=== PATIENT | male | born 1970 | race Caucasian/White ===

== ENCOUNTER 2020-12-15 14:09 | Emergency (ER) | payer BC, SELFPAY ==
[2020-12-15 15:05] VITALS: BP 125/77; PULSE 87; RESP 19; TEMP 37.2; O2SAT 99; BMI 30.1
--- NOTE | 2020-12-15 16:16 | HMH.EDUTC ---
[facility] [place] Clinical Impression: Bronchitis Sinusitis Qualifiers: Sinusitis location: unspecified location Chronicity: unspecified Qualified Code(s): J32.9 - Chronic sinusitis, unspecified Disposition: Home, Self-Care Condition on Discharge: Good Instructions: Sinusitis, Acute Bronchitis, DI for Sinusitis Additional Instructions: ? Start antibiotic today. Be sure to complete entire prescription even if feeling better ? Monitor temp. Tylenol every 4 hours as needed and / or ibuprofen every 6 hours as needed ( As long as your primary care physician has told you that it ok to take both. For fever/aches/pains ER if no less than 101 despite Tylenol or Motrin ? Humidifier/vaporizer or hot steamy shower ? Inhaler every 4-6 hours as needed like we discussed. If unsure how to use it, ask pharmacist to demonstrate how. Should help open airways and improve cough, wheezing, and shortness of breath ? Mucinex during the day for your cough and cough suppressant only at night. Be sure to drink lots of water. Insurance may not cover a prescriptions for mucinex. Might be cheaper to get 400mg tablets and take 2 tablet in the morning, mid-day and evening with lots of water. Start steroid today. Helps with inflammation therefore, cough and wheezing. Follow directions on the package. Reviewed side effects. Patient reports taking them before. Follow up IMMEDIATELY for new or worsening of symptoms OR no noticeable improvement over the next 48-72 hours. 911 immediately for any life threatening symptoms such as chest pain or difficulty breathing Prescriptions: predniSONE [Deltasone 10mg tablet] 10 mg PO BID 5 Days #10 tab Transmission Status: Pending to [facility] # Azithromycin [Z-John 250mg Tab] 250 mg PO DIRECTED #6 tab Transmission Status: Pending to [facility] # Referrals: Lauren North MD [Primary Care Provider] - As needed Time of Disposition: 16:23 Medical Decision Making - Owen Inquiry Pt receiving controlled substance: No Owen was queried for this patient: No Vital Signs: 12/15/20 15:05 Temperature 99.0 F Temperature Source Oral Pulse Rate [Right Brachial] 87 Respiratory Rate 19 Blood Pressure [Right Arm] 125/77 Blood Pressure Mean [Right Arm] 93 Blood Pressure Source [Right Arm] Automatic Cuff Blood Pressure Position [Right Arm] Sitting 02 Sat by Pulse Oximetry 99 Oxygen Delivery Method Room Air [facility] [place] HPI - General Stated complaint: congestion Time Seen by Provider: 12/15/20 16:16 Mode of Arrival: Ambulatory Source of Information: Patient Limitations: No Limitations Description of Symptoms (Recalled from Triage Doc. by RN): PATIENT C/O POSSIBLE UPPER RESPIRATORY INFECTION X 3 DAYS HEENT Symptoms (Recalled from RN notes): Yes Resp Symptoms (Recalled from RN notes): Yes Skin Symptoms (Recalled from RN notes): No MS Symptoms (Recalled from RN notes): No Functional Status (Recalled from RN notes): WNL - History of Present Illness Provider Complaint: Patient states that he has been having sore throat, sinus pressure and headache along with feeling like it is trying to move into his chest States that he has a history of getting bronchitis States that he started feeling bad over a week ago but got worse over the last couple of days State that he started taking Mucinex and it has helped some with the cough and has inhaler at home - Related Data Home Medications Medication Instructions Recorded Confirmed fluticasone propionate 50 1 spray INTRANASAL DAILY g 11/04/17 05/16/20 mcg/actuation nasal spray,suspension Fluticasone Propionate [Flonase 1 spray INTRANASAL DAILY 10/06/19 05/16/20 Allergy Relief NS] Previous Rx's Medication Instructions Recorded Azithromycin [Z-John 250mg Tab] 250 mg PO DIRECTED #6 tab 12/15/20 predniSONE [Deltasone 10mg tablet] 10 mg PO BID 5 Days #10 tab 12/15/20 Allergies Allergy/AdvReac Type Severity Reaction Status Da
[2020-12-15 16:23] VITALS: BP 125/77; PULSE 87; RESP 19; TEMP 37.2; O2SAT 99
== END 2020-12-15 16:28 | disposition home or self-care (01) ==
PROVIDERS: Emergency Provider Nurse Practitioner; PCP Family Medicine
DX: J20.9 Acute bronchitis, unspecified (principal); J32.9 Chronic sinusitis, unspecified; J45.909 Unspecified asthma, uncomplicated
CPT/HCPCS: 99202; G0463

== ENCOUNTER → 2022-03-02 13:24 | Outpatient (CLI) | payer BC, SELFPAY ==
--- NOTE | 2022-03-02 13:30 | XR_ITS ---
FINAL REPORT CLINICAL HISTORY: COVID TESTING, cough COMPARISON: October 06, 2019 FINDINGS: A single portable view of the chest was obtained. The heart size and pulmonary vascularity are within normal limits. The mediastinum is within normal limits. There are mild bibasilar pulmonary opacities favoring atelectasis over pneumonia. The bony thorax is intact. IMPRESSION: Mild bibasilar pulmonary opacities favoring atelectasis over pneumonia. Reviewed, Interpreted and Dictated by Sha Gusman III, MD Transcribed by Tamera Lucas Authenticated and [facility]
[2022-03-02 14:04] LABS: Basophils % 0.8 % (0.1-2.0); Eosinophils % 1.3 % (0.1-12.0); Hemoglobin 15.3 g/dL (14.1-18.0); Lymphocytes # 0.7 K/mm3 (0.7-4.5); Lymphocytes % 22.4 % (10-50); Mean Corpuscular HGB Conc 32.6 g/dL (31.8-35.4); Mean Corpuscular Hemoglobin 29.1 pg (27.0-31.2); Mean Corpuscular Volume 89.3 fl (80-94); Mean Platelet Volume 7.9 fl (7.4-10.4); Monocytes # 0.4 K/mm3 (0.1-1.0); Monocytes % 13.7 % (1.7-9.3); Neutrophils # 1.9 K/mm3 (1.8-7.8); Neutrophils % 61.7 % (37.0-80.0); Platelet Count 153 K/mm3 (142-424); Red Blood Count 5.26 M/mm3 (4.60-6.20); Red Cell Distribution Width 13.4 % (11.5-17.5); White Blood Count 3.1 K/mm3 (4.8-10.8)
== END ==
PROVIDERS: PCP Family Medicine; Visit Provider Family Medicine
DX: U07.1 COVID-19 (principal)
CPT/HCPCS: 36415; 71045; 85025; C9803; U0003; U0005

== ENCOUNTER → 2022-04-08 11:27 | Outpatient (CLI) | payer BC, SELFPAY ==
[2022-04-08 12:34] LABS: Basophils # 0.1 K/mm3 (0-0.2); Basophils % 1.3 % (0.1-2.0); Eosinophils # 0.1 K/mm3 (0.0-0.4); Eosinophils % 1.5 % (0.1-12.0); Hematocrit 47.1 % (42.0-52.0); Hemoglobin 15.3 g/dL (14.1-18.0); Lymphocytes # 1.2 K/mm3 (0.7-4.5); Lymphocytes % 19.8 % (10-50); Mean Corpuscular HGB Conc 32.5 g/dL (31.8-35.4); Mean Corpuscular Volume 89.3 fl (80-94); Mean Platelet Volume 7.6 fl (7.4-10.4); Monocytes # 0.5 K/mm3 (0.1-1.0); Neutrophils # 4.3 K/mm3 (1.8-7.8); Neutrophils % 69.3 % (37.0-80.0); Platelet Count 177 K/mm3 (142-424); Red Blood Count 5.28 M/mm3 (4.60-6.20); Red Cell Distribution Width 13.9 % (11.5-17.5); White Blood Count 6.3 K/mm3 (4.8-10.8)
[2022-04-08 13:19] LABS: Alanine Aminotransferase 18 U/L (12-78); Albumin Level 3.3 g/dl (3.5-5.0); Albumin/Globulin Ratio 1.5 (1.1-1.8); Alkaline Phosphatase 75 U/L (38-126); Anion Gap 10.3 mEq/L (5-15); Aspartate Amino Transferase 23 U/L (17-59); Bilirubin,Total 0.5 mg/dl (0.2-1.3); Blood Urea Nitrogen 15 mg/dl (9-20); Calcium 7.5 mg/dl (8.4-10.2); Carbon Dioxide 27 mmol/L (22.0-30.0); Chloride 101 mmol/L (98-107); Estimated Glomerular Filt Rate 101 ml/min (>60); GFR (African American) 122 ML/MIN (>60); Globulin 2.2 g/dL (1.3-3.2); Glucose 93 mg/dl (74-100); Potassium 4.3 mmoL/L (3.5-5.1); Sodium 134 mmol/L (136-145); Total Protein,Serum 5.5 g/dl (6.3-8.2)
[2022-04-08 13:48] LABS: Thyroid Stimulating Hormone 0.55 uIU/mL (0.465-4.68)
== END ==
PROVIDERS: PCP Physician Assistant; Visit Provider Physician Assistant
DX: J06.9 Acute upper respiratory infection, unspecified (principal); R53.83 Other fatigue
CPT/HCPCS: 36415; 80053; 84443; 85025

== ENCOUNTER → 2022-04-10 06:04 | Outpatient (CLI) | payer BC, SELFPAY ==
--- NOTE | 2022-04-10 06:27 | XR_ITS ---
FINAL REPORT TECHNIQUE: Chest PA & Lateral CLINICAL HISTORY: HISTORY OF COVID, WHEEZING COMPARISON: 03/02/2022 FINDINGS: 2 views of the chest were performed. The heart size is normal. The mediastinum is within normal limits. There is mild bronchial wall thickening. There are no pleural effusions. There is no pneumothorax. The bony thorax appears intact. IMPRESSION: Mild bronchial wall thickening may represent bronchitis. Reviewed, Interpreted and Dictated by Sha Gusman III, MD Transcribed by Tae Jiang Authenticated and [facility]
--- NOTE | 2022-04-10 06:28 | CT_ITS ---
FINAL REPORT TECHNIQUE: Axial CT images were obtained through the sinuses/facial bones. Coronal reformats were obtained. This study was performed with techniques to keep radiation doses as low as reasonably achievable (ALARA). Individualized dose reduction techniques using automated exposure control or adjustment of mA and/or kV according to the patient's size were employed. CLINICAL HISTORY: CHRONIC SINUSITIS FINDINGS: There is moderate to severe mucosal thickening in the maxillary sinuses. There is mucosal thickening in the ethmoid air cells and sphenoid sinuses. There are no air-fluid levels. There is leftward nasal septal deviation with a small left-sided nasal septal spur. There is a left wen bullosa. Soft tissue obstructs the maxillary ostia and infundibula. IMPRESSION: Widespread sinusitis with obstruction of the maxillary ostia and infundibula. Reviewed, Interpreted and Dictated by Sha Gusman III, MD Transcribed by Tae Jiang Authenticated and . [facility]
== END ==
PROVIDERS: PCP Physician Assistant; Visit Provider Physician Assistant
DX: R06.2 Wheezing (principal); R06.02 Shortness of breath; R50.9 Fever, unspecified; R05.9 Cough, unspecified; J32.9 Chronic sinusitis, unspecified; Z86.16 Personal history of COVID-19
CPT/HCPCS: 70486; 71046

== ENCOUNTER → 2022-07-16 16:09 | Outpatient (CLI) | payer BC, SELFPAY ==
[2022-07-16 16:29] LABS: Coronavirus 19, PCR Not Detected (NotDetected); Influenza A, PCR Not Detected (NotDetected); Influenza B, PCR Not Detected (NotDetected)
== END ==
PROVIDERS: PCP Family Medicine; Visit Provider Physician Assistant
DX: Z20.822 Contact with and (suspected) exposure to COVID-19 (principal)
CPT/HCPCS: C9803; U0003; U0005

== ENCOUNTER 2023-11-20 18:41 | Emergency (ER) | payer BC, SELFPAY ==
[2023-11-20 18:50] VITALS: BP 127/86; PULSE 64; RESP 18; TEMP 36.8; O2SAT 96; BMI 30.1
--- NOTE | 2023-11-20 19:02 | ED_ITS ---
Discharge Plan Disposition Patient Disposition: Home, Self-Care Prescriptions Prescriptions: New cyclobenzaprine 10 mg Tablet 10 mg PO BID PRN (Reason: Muscle Spasm) Qty: 20 0RF prednisone 20 mg tablet 20 mg PO BID 5 Days Qty: 10 0RF No Action fluticasone propionate 9.9 ML spray,suspension 1 spray intranasal DAILY Rx Instructions: administer into each nostril Referrals Follow up/Referrals: Lauren North MD [Primary Care Provider] - See instructions Activity Restrictions/Add. Instructions Additional Instructions/Restrictions: Go home and rest. It would be best if you rested tomorrow too. No heavy lifting. No twisting. Take the oral medications as directed. The muscle relaxer (cyclobenzaprine--Flexeril) will make you drowsy, so don't drive or operate heavy machinery after taking it. Don't start the oral steroids (medrol dose pack) until tomorrow, since you had the shots in here today. Follow up with your regular doctor. GO TO THE ER FOR ANY WORSENING SYMPTOMS OR CONCERN, ESPECIALLY BOWEL OR BLADDER ISSUES, SADDLE AREA NUMBNESS, FEVER, ETC Clinical Impressions Clinical Impression: Low back pain with sciatica Discharge ED Provider: Cesar Potts [facility] General Stated complaint: lower back pain Time Seen by Provider: 11/20/23 19:02 History of Present Illness Provider Complaint: He states that for the past 3 weeks he has had low back pain. He came in today because his pain has worsened and it has began to radiate down his right leg today. He took a medrol dose pack that he finished about 1 week ago. He states that this did help some at first, but his symptoms returned after he finished. He has had episodes of low back pain before, but they have never lasted this long. He denies any falls or trauma. He denies any urinary complaints. Related Data Home Medications Medication Instructions Recorded Confirmed fluticasone propionate 50 1 spray intranasal DAILY allergies 10/06/19 11/20/23 mcg/actuation nasal spray,suspension Previous Rx's Medication Instructions Recorded cyclobenzaprine 10 mg tablet 10 mg PO BID PRN Muscle Spasm #20 11/20/23 tabs prednisone 20 mg tablet 20 mg PO BID 5 days #10 tabs 11/20/23 Allergies Allergy/AdvReac Type Severity Reaction Status Date / Time ILOSOME Allergy Unknown I-RASH Uncoded 11/20/23 19:12 [facility] Disclaimer: The information contained in this section may have been updated after the patient was seen, as this information can be updated by other users. Medical History Chronic sinusitis Deviated septum History of asthma History of stomach ulcers Sinus congestion Tympanosclerosis Surgical History History of placement of ear tubes Hx of bilateral inguinal hernia repair Social History Smoking Status: Current every day smoker tobacco type: smokeless tobacco alcohol intake: never substance use type: denies use current occupational status: other Travel in the last 8 weeks: None household members: family housing: house ROS Obtained: Yes All systems reviewed & no additional complaints except as documented Constitutional Constitutional: Denies chills and Denies fever(s) Eyes Eyes: Denies eye discharge ENT Ears, Nose, Mouth, and Throat: Denies dizziness, Denies otalgia, Denies neck pain and Denies sore throat Cardiovascular Cardiovascular: Denies chest pain Respiratory Respiratory: Denies shortness of breath, Denies chest congestion, Denies cough, Denies stridor and Denies wheezing Gastrointestinal Gastrointestingal: Denies nausea or vomiting Musculoskeletal Musculoskeletal: Reports as per HPI, Reports back pain and Denies neck pain Integumentary/Breasts Skin/Breast: Denies redness, Denies rash and Denies wounds Neurologic Neurologic: Reports as per HPI, Denies dizziness, Denies paresthesias and Reports radicular pain Allergic/Immunologic Allergic/Immunologic: Denies wheezing Physical Exam General General appearance: alert and in no apparent distress Head Head exam: atraumatic, normocephalic and normal inspection Eye Eye exam: Present normal appearance, PERRL and EOMI ENT ENT exam: Present normal exam, normal oropharynx, mucous membranes moist, TM's normal bilaterally and normal external ear exam Neck Neck exam: Present normal inspection, full ROM and trachea midline; Absent meningismus or lymphadenopathy Chest Chest inspection: Present normal inspection and symmetric chest wall rise; Absent tenderness Respiratory Respiratory exam: Present normal lung sounds bilaterally; Absent respiratory distress Cardiovascular Cardiovascular exam: Present regular rate and normal rhythm; Absent JVD Abdominal Exam Abdominal exam: Present soft and normal bowel sounds; Absent distention, tenderness or guarding Extremities Exam Extremities exam: Present normal inspection, full ROM and normal capillary refill; Absent calf tenderness Back Exam Back exam: Present normal inspection; Absent tenderness Neurological Exam Neurological exam: Present alert, oriented X3, CN II-XII intact, normal gait and reflexes normal; Absent motor sensory deficit Expanded Neurological Exam Speech: Present fluid speech Cranial nerves: Normal: EOM function (II, III, IV, ), facial sensation (V), facial palsy (VII), gag reflex (IX), spinal accessory function (XI) and tongue deviation (XII) Cerebellar function: normal gait Motor strength - LUE: 5/5 Motor strength - RUE: 5/5 Motor strength - LLE: 5/5 Motor strength - RLE: 5/5 Sensory exam upper extremity: Normal: light touch and 2 point discrimination Sensory exam lower extremity: Normal: light touch and 2 point discrimination DTR: 2+: biceps (L), biceps (R), patellar (L), patellar (R), Achilles tendon (L) and Achilles tendon (R) Spinal cord function: Absent saddle anesthesia Psychiatric Psychiatric exam: Present normal affect and normal mood Skin Skin exam: Present warm, dry, intact and normal color Lymphatic Lymphatic Findings: no adenopathy Medical Decision Making Medical Records Medical records reviewed: No I reviewed the patient's medical records. Owen Inquiry Pt receiving controlled substance: No Radiology Data #1: Image(s): L-Spine Image Reviewed: Yes I reviewed the patient's radiology image and Yes I have reviewed radiologist's interpretation Preliminary Findings: No Fracture Seen
--- NOTE | 2023-11-20 19:38 | XR_ITS ---
PROCEDURE INFORMATION: Exam: XR Lumbosacral Spine Exam date and time: 11/20/2023 7:41 PM Age: 53 years old Clinical indication: Pain; Lumbago with sciatica; Additional info: Low back pain, no known injury TECHNIQUE: Imaging protocol: Radiologic exam of the lumbosacral spine. Views: 4 or 5 views. Total images: 5 COMPARISON: No relevant prior studies available. FINDINGS: Bones/joints: Five non rib-bearing lumbar vertebral segments. Vertebral body height and alignment is maintained. Moderate degenerative disc disease L2-L3. Mild degenerative disc disease L4-L5 and L5-S1. Pedicles and posterior elements are intact. Facet joints are appropriately aligned. Mild degenerate facet joint spondylosis bilaterally L2-L3, L4-L5 and L5-S1. No spondylolysis. No concerning bone lesions. Included sacrum and SI joint spaces are unremarkable. Soft tissues: Unremarkable soft tissues. Gastrointestinal tract: Nonobstructive bowel gas pattern. Vasculature: Incidental pelvic phleboliths. IMPRESSION: 1. No acute lumbar fracture or traumatic subluxation. 2. Moderate degenerative disc disease L2-L3. 3. Mild degenerative disc disease and facet joint spondylosis elsewhere.
[2023-11-20] MEDS: METHYLPREDNISOLONE SOD SUCC 125MG VIAL 125 MG IM (20:13)
[2023-11-20] MEDS: KETOROLAC 60MG/2ML VIAL 60 MG IM (20:13)
[2023-11-20 20:38] VITALS: BP 127/86; PULSE 64; RESP 18; TEMP 36.8; O2SAT 96
== END 2023-11-20 20:38 | disposition home or self-care (01) ==
PROVIDERS: Emergency Provider Nurse Practitioner Family; PCP Family Medicine
DX: M54.41 Lumbago with sciatica, right side (principal)
CPT/HCPCS: 72110; 96372; 99212; 99214; G0463

== ENCOUNTER 2023-11-22 03:33 | Observation (INO) | payer BC, SELFPAY ==
[2023-11-22] VITALS (16 sets, daily range): BP systolic 114–144; BP diastolic 68–103; PULSE 63–94; RESP 16–20; TEMP 36.7–36.9; O2SAT 92–100; BMI 30.1; BMI 30.7
--- NOTE | 2023-11-22 03:36 | ED_ITS ---
Discharge Plan Disposition Patient Disposition: Home, Self-Care Prescriptions Prescriptions: New methocarbamol 500 mg tablet 500 mg PO Q6H PRN (Reason: pain) Qty: 30 0RF No Action cyclobenzaprine 10 mg Tablet 10 mg PO BID PRN (Reason: Muscle Spasm) Qty: 20 0RF prednisone 20 mg tablet 20 mg PO BID 5 Days Qty: 10 0RF fluticasone propionate 9.9 ML spray,suspension 1 spray intranasal DAILY Rx Instructions: administer into each nostril Referrals Follow up/Referrals: Lauren North MD [Primary Care Provider] - See instructions Activity Restrictions/Add. Instructions Additional Instructions/Restrictions: Please follow-up with your primary care provider. Recommend establishing care with our pain specialist. Please return to the emergency department if you develop any new or worsening symptoms or become concerned for your health. Please take Tylenol, ibuprofen, Robaxin as needed for pain. Please use lidocaine patches as needed. Clinical Impressions Clinical Impression: Low back pain with sciatica Qualifiers: Chronicity: acute Back pain laterality: right Sciatica laterality: sciatica of right side Qualified Code(s): M54.41 - Lumbago with sciatica, right side Instructions Patient Instructions: DI for Low Back Pain Discharge ED Provider: Carlos Fernández General Adult HPI General Chief complaint: Back Pain/Injury Stated complaint: BACK PAIN Time Seen by Provider: 11/22/23 03:36 History of Present Illness HPI narrative: 53-year-old male with extensive history of chronic back pain presents with acute worsening of back pain. He reports that approximately 10 to 15 years ago he had a thorough evaluation for possible surgical intervention but was told he is not a candidate at that time. He earlier this year had a severe worsening of back pain and was started on physical therapy with marked improvement. Last month the pain returned. For the last couple of days he has had much more severe pain. He reports it is consistent with his normal pain. Low back, right-sided in nature with radiation down the right leg. He denies any history of IV drug use or immunocompromise. He denies any recent falls or trauma. Denies any recent fever or illness. He reports no weakness numbness or incontinence or retention. Denies any perineal sensation changes. He was seen in urgent care yesterday and was prescribed Flexeril and prednisone which he has been taking without improvement in symptoms. Related Data Home Medications Medication Instructions Recorded Confirmed fluticasone propionate 50 1 spray intranasal DAILY allergies 10/06/19 11/20/23 mcg/actuation nasal spray,suspension Previous Rx's Medication Instructions Recorded cyclobenzaprine 10 mg tablet 10 mg PO BID PRN Muscle Spasm #20 11/20/23 tabs prednisone 20 mg tablet 20 mg PO BID 5 days #10 tabs 11/20/23 methocarbamol 500 mg tablet 500 mg PO Q6H PRN pain #30 tabs 11/22/23 Allergies Allergy/AdvReac Type Severity Reaction Status Date / Time ILOSOME Allergy Unknown I-RASH Uncoded 11/20/23 19:12 [facility] [place] Disclaimer: The information contained in this section may have been updated after the patient was seen, as this information can be updated by other users. Medical History Chronic sinusitis Deviated septum History of asthma History of stomach ulcers Sinus congestion Tympanosclerosis Surgical History History of placement of ear tubes Hx of bilateral inguinal hernia repair Social History Smoking Status: Never smoker alcohol intake: never substance use type: denies use current occupational status: other Travel in the last 8 weeks: None household members: family housing: house ROS Obtained: Yes All systems reviewed & no additional complaints except as documented Physical Exam General General appearance: alert Comment: Uncomfortable appearing secondary to pain Head Head exam: atraumatic and normocephalic Eye Eye exam: Present normal appearance, PERRL and EOMI ENT ENT exam: Present normal oropharynx and normal external ear exam Neck Neck exam: Present normal inspection and full ROM Chest Chest inspection: Present normal inspection and symmetric chest wall rise; Absent tenderness Respiratory Respiratory exam: Present normal lung sounds bilaterally; Absent respiratory distress Cardiovascular Cardiovascular exam: Present regular rate and normal rhythm Abdominal Exam Abdominal exam: Present soft; Absent distention, tenderness or guarding Extremities Exam Extremities exam: Present normal inspection; Absent edema or joint swelling Back Exam Back exam: Present normal inspection; Absent tenderness Neurological Exam Neurological exam: Present alert, oriented X3 and other (Intact distal pulse exam, normal sensation legs, normal strength and reflexes in the leg.); Absent motor sensory deficit Psychiatric Psychiatric exam: Present normal affect and normal mood Skin Skin exam: Present warm, dry and normal color Lymphatic Lymphatic Findings: no adenopathy Medical Decision Making Medical Records Medical records reviewed: Yes I reviewed the patient's medical records. Owen Inquiry Pt receiving controlled substance: No Owen was queried for this patient: No Vital Signs: 11/22/23 03:40 11/22/23 04:30 Temperature 98.3 F Temperature Source Oral Pulse Rate 88 Pulse Rate [Left Radial] 91 H Respiratory Rate 20 Blood Pressure 137/89 Blood Pressure [Right Arm] 143/94 H Blood Pressure Mean [Right Arm] 110 Blood Pressure Source [Right Arm] Automatic Cuff Blood Pressure Position [Right Arm] Supine 02 Sat by Pulse Oximetry 100 96 Oxygen Delivery Method Room Air Lab Data Lab results reviewed: Yes I reviewed the patient's lab results. Orders (Tests/Meds): ED MEDICATIONS Discontinued Medications Generic Name Dose Route Start Last Admin Trade Name Freq PRN Reason Stop Dose Admin Acetaminophen 1,000 mg 11/22/23 03:54 11/22/23 04:10 Acetaminophen 500mg Tab PO 11/22/23 03:55 1,000 mg ONCE ONE Administration Ketorolac Tromethamine 30 mg 11/22/23 03:54 11/22/23 04:06 Ketorolac 30mg/Ml Vial IM 11/22/23 03:55 30 mg ONCE ONE Administration Lidocaine 1 each 11/22/23 03:54 11/22/23 04:10 Lidocaine 5% Transdermal Patch TP 11/22/23 03:55 1 each ONCE ONE Administration Methocarbamol 500 mg 11/22/23 03:54 11/22/23 04:10 Methocarbamol 500mg Tablet PO 11/22/23 03:55 500 mg ONCE ONE Administration Morphine Sulfate 4 mg 11/22/23 03:54 Morphine 2mg/Ml Syringe IM 11/22/23 03:55 ONCE ONE Morphine Sulfate 4 mg 11/22/23 04:08 Morphine 2mg/Ml Syringe IM 11/22/23 04:09 ONCE ONE Morphine Sulfate 4 mg 11/22/23 04:10 Morphine 4mg/Ml Syringe IV 11/22/23 04:11 ONCE ONE Morphine Sulfate 4 mg 11/22/23 04:11 11/22/23 04:12 Morphine 4mg/Ml Syringe IM 11/22/23 04:12 4 mg ONCE ONE Administration ORDERS Category Date Time Status CT lumbar spine wo con Stat Cat Scan 11/22/23 04:50 Completed Medical Decision Narrative: 53-year-old male with history of chronic low back pain presents with severe acute on chronic low back pain with right-sided radiation. History was obtained interactive discussion with patient, family, chart review. On arrival, patient is [afebrile, hemodynamically stable, satting appropriately, alert, oriented x4, GCS 15], moving all extremities spontaneously. Full physical exam performed and significant for completely normal neurologic exam Differential includes but is not limited to degenerative disc disease, herniated disc, cauda equina, epidural hematoma, epidural abscess, lumbar fracture, malignancy. Patient was given IM Toradol, IM morphine, p.o. Tylenol, lidocaine patch, Robaxin for symptomatic management and correction of underlying abnormalities. On re-evaluation, patient reports no significant improvement in pain. Given the severity of pain, will evaluate with CT lumbar spine. Imaging independently interpreted by me and significant for mild degenerative disc disease without acute mass lesion, fracture or evidence of cord compression.. See radiology read for full review of final results. MRI of the lumbar spine was considered, but deemed unnecessary due to no history or exam findings that are consistent with spinal cord compressive pathology.. Given patient history, exam and workup, patient's presentation most likely repre sents acute on chronic degenerative disc disease and low back pain/sciatica. I had extensive and repeated discussion with patient regarding symptom control. Recommend that he follow-up with our pain specialist Dr. Pena for further assessment as well as with PCP, also recommend he reinitiate physical therapy. Patient was prescribed lidocaine patches and Robaxin.. Procedures Risk/Benefits of Procedure(s) Were Explained: Yes Critical Care Critical Care Time Critical Care Time: No
[2023-11-22] MEDS: KETOROLAC 30MG/ML VIAL 30 MG IM (04:06)
[2023-11-22] MEDS: METHOCARBAMOL 500MG TABLET 500 MG PO (04:10)
[2023-11-22] MEDS: LIDOCAINE 5% TRANSDERMAL PATCH 1 EACH TP (04:10)
[2023-11-22] MEDS: ACETAMINOPHEN 500MG TAB 1000 MG PO (04:10)
[2023-11-22] MEDS: MORPHINE 4MG/ML SYRINGE 4 MG IM (04:12)
--- NOTE | 2023-11-22 04:50 | CT_ITS ---
PROCEDURE INFORMATION: Exam: CT Lumbar Spine Without Contrast Exam date and time: 11/22/2023 4:58 AM Age: 53 years old Clinical indication: Pain; Lumbago with sciatica; Right; Additional info: Acute on chronic low back pain/r sciatica TECHNIQUE: Imaging protocol: Computed tomography of the lumbar spine without contrast. Radiation optimization: All CT scans at this facility use at least one of these dose optimization techniques: automated exposure control; mA and/or kV adjustment per patient size (includes targeted exams where dose is matched to clinical indication); or iterative reconstruction. COMPARISON: CR XR LUMBAR SPINE MIN 4V 11/20/2023 7:41 PM FINDINGS: Bones/joints: No acute fracture. Normal alignment. Mild narrowing at L5-S1 with marginal osteophyte. No significant disc bulge or herniation. No severe spinal canal stenosis. No significant neural foraminal narrowing. Soft tissues: Unremarkable. IMPRESSION: Mild DJD. No acute findings.
--- NOTE | 2023-11-22 05:10 | PC.NURSE ---
patient back from radiology, patient repositioned in bed, given pillow to place between his knees for comfort
--- NOTE | 2023-11-22 05:51 | PC.NURSE ---
pt states he can not get into a seated position to get into the car to go home. MD Fernández notified
--- NOTE | 2023-11-22 05:53 | PC.NURSE ---
paged dr mason, coverage for dr santana for possible admit.
--- NOTE | 2023-11-22 05:55 | PC.NURSE ---
received call back from dr mason
--- NOTE | 2023-11-22 06:00 | PC.NURSE ---
shelley alexreturned telephone equipment appraiser notified of admission status. patient is now boarding in ED till we are further notified by house
[2023-11-22] MEDS: GABAPENTIN 100MG CAPSULE 100 MG PO (06:06)
[2023-11-22] MEDS: HYDROMORPHONE 2MG/ML SYRINGE 1 MG IM (06:07)
--- NOTE | 2023-11-22 07:10 | PC.NURSE ---
rounded on pt at this time. pt voices no needs at this time
--- NOTE | 2023-11-22 07:52 | PC.NURSE ---
Breakfast tray ordered for pt. Sister & mother at bedside, updated on pt condition.
--- NOTE | 2023-11-22 08:10 | PC.NURSE ---
page made out to Dr. North for pain medication management.
--- NOTE | 2023-11-22 08:11 | PC.NURSE ---
offered pt tylenol and ibuprofen as needed for pain, pt states that he will wait until we receive a call back from Dr. North.
--- NOTE | 2023-11-22 08:23 | PC.NURSE ---
Pt is c/o continued pain to RLE. He has refused tylenol & motrin and pt is a boarding pt in the ER. He was admitted by Dr. Patterson for Dr. North. [phone] North 0811 Dutch Mcgill RN s/w Dr. North, he stated I did not admit him . Per Dr. Fernández note, Dr. Patterson admitted pt for Dr. North. [phone] North 0823 Manuel s/w Dr. North, let him know that Dr Patterson admitted the pt for him around 0610 this AM. I let him know the pt is boarding in the ER at this time and is c/o about increased pain and refused tylenol & motrin. Dr North stated I see him on my charts now. We'll be glad to see him when he gets upstairs . He then ended the call, no verbal orders received at this time.
--- NOTE | 2023-11-22 08:29 | PC.NURSE ---
I s/w Deena ROBISON of 2nd floor to let her know when pt is boarding and when Dr. 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
--- NOTE | 2023-11-22 08:45 | PC.NURSE ---
Dr. North at bedside.
--- NOTE | 2023-11-22 08:54 | PC.NURSE ---
Spoke with Dr. North who gave this nurse verbal order of 125mg Solu-Medrol IV stat and 1mg Dilaudid IV stat. Verified with NEREYDA Scott
[2023-11-22] MEDS: METHYLPREDNISOLONE SOD SUCC 125MG VIAL 125 MG IV ×2 (09:17→10:21)
[2023-11-22] MEDS: HYDROMORPHONE 2MG/ML SYRINGE 1 MG IV (09:18)
--- NOTE | 2023-11-22 09:30 | PC.NURSE ---
FRANKIE Montoya at bedside with pt at this time
--- NOTE | 2023-11-22 09:46 | PC.NURSE ---
FRANKIE Montoya gave verbal order for 125mg IV Solu-Medrol and 10mg po of flexeril once at this time. This nurse confirmed that she wanted it on top of the 125mg of Solu-Medrol that was just given less than an hour ago and FRANKIE Montoya confirmed her orders for a total of 250mg. Dr. Veliz present for conversation and verified with this nurse.
--- NOTE | 2023-11-22 09:55 | EXP.HP ---
History of Present Illness *Admission Date: 11/22/23 *Reason for visit:: intractable back pain *History of present illness: HPI narrative: 53-year-old male with extensive history of chronic back pain presents with acute worsening of back pain. He reports that approximately 10 to 15 years ago he had a thorough evaluation for possible surgical intervention but was told he is not a candidate at that time. He earlier this year had a severe worsening of back pain and was started on physical therapy with marked improvement. Last month the pain returned. For the last couple of days he has had much more severe pain. He reports it is consistent with his normal pain. Low back, right-sided in nature with radiation down the right leg. He denies any history of IV drug use or immunocompromise. He denies any recent falls or trauma. Denies any recent fever or illness. He reports no weakness numbness or incontinence or retention. Denies any perineal sensation changes. He was seen in urgent care yesterday and was prescribed Flexeril and prednisone which he has been taking without improvement in symptoms. Medical Decision Narrative: 53-year-old male with history of chronic low back pain presents with severe acute on chronic low back pain with right-sided radiation. History was obtained interactive discussion with patient, family, chart review. On arrival, patient is [afebrile, hemodynamically stable, satting appropriately, alert, oriented x4, GCS 15], moving all extremities spontaneously. Full physical exam performed and significant for completely normal neurologic exam Differential includes but is not limited to degenerative disc disease, herniated disc, cauda equina, epidural hematoma, epidural abscess, lumbar fracture, malignancy. Patient was given IM Toradol, IM morphine, p.o. Tylenol, lidocaine patch, Robaxin for symptomatic management and correction of underlying abnormalities. On re-evaluation, patient reports no significant improvement in pain. Given the severity of pain, will evaluate with CT lumbar spine. Imaging independently interpreted by me and significant for mild degenerative disc disease without acute mass lesion, fracture or evidence of cord compression.. See radiology read for full review of final results. MRI of the lumbar spine was considered, but deemed unnecessary due to no history or exam findings that are consistent with spinal cord compressive pathology.. Given patient history, exam and workup, patient's presentation most likely represents acute on chronic degenerative disc disease and low back pain/sciatica. I had extensive and repeated discussion with patient regarding symptom control. Recommend that he follow-up with our pain specialist Dr. Pena for further assessment as well as with PCP, also recommend he reinitiate physical therapy. Patient was prescribed lidocaine patches and Robaxin.. On reassessment, patient was unable to get into a seated position to be able to safely transport at home. I had repeated discussion with family regarding his care. Given the severity of his pain, I spoke with Dr. Tilley who accepted the patient on behalf of Dr. North for admission for further assessment of intractable low back pain. Patient was given IM Dilaudid as well as p.o. gabapentin The above as per ER documentation Lumbar spine CT: FINDINGS: Bones/joints: No acute fracture. Normal alignment. Mild narrowing at L5-S1 with marginal osteophyte. No significant disc bulge or herniation. No severe spinal canal stenosis. No significant neural foraminal narrowing. Soft tissues: Unremarkable. IMPRESSION: Mild DJD. No acute finding Lumbar/sacral spine x-ray IMPRESSION: 1. No acute lumbar fracture or traumatic subluxation. 2. Moderate degenerative disc disease L2-L3. 3. Mild degenerative disc disease and facet joint spondylosis elsewhere. With this visit in the ER awaiting bed assignment patient continues to be in severe discomfort. He recently had Dilaudid 1 mg IV 20 minutes ago as well as Solu-Medrol 125 mg IV. The pain comes in spasms. He is crying with discomfort. Discussed with Dr. North and will admit for pain control as per orders. [facility] Disclaimer: The information contained in this section may have been updated after the patient was seen, as this information can be updated by other users. Medical History (Updated 11/22/23 @ 11:22 by Lindsay Graham APRN) Lumbar disc disease with radiculopathy Tympanosclerosis Deviated septum Sinus congestion History of stomach ulcers History of asthma Chronic sinusitis Surgical History Hx of bilateral inguinal hernia repair History of placement of ear tubes Social History Smoking Status: Never smoker alcohol intake: never substance use type: denies use current occupational status: other Travel in the last 8 weeks: None household members: family housing: house Review of Systems Constitutional Constitutional: Denies fever(s) Eyes Eyes: Denies change in vision ENT Ears, Nose, Mouth, and Throat: Reports nasal congestion (He feels this is due to allergies) *Cardiovascular Cardiovascular: Denies chest pain and Denies dyspnea *Respiratory Respiratory: Denies chest congestion and Denies dyspnea *Gastrointestinal Gastrointestinal: Denies change in bowel habits, Reports change in stool character (He did have some black stools a couple weeks ago.This has resolved), Denies nausea and Denies vomiting *Genitourinary Genitourinary: Denies difficulty urinating (Patient has not voided since being in the emergency room) *Musculoskeletal Musculoskeletal: Reports abnormal gait (Unable to walk due to back pain. He describes his back as locking up) and Reports back pain (Radiates down the right leg) *Neurologic Neurologic: Reports abnormal gait (Unable to walk due to back pain. He describes his back as locking up) Meds Home Medications and Allergies Home Medications Medication Instructions Recorded Confirmed Type prednisone 20 mg tablet 20 mg PO BID 5 days #10 tabs 11/20/23 11/22/23 Rx albuterol sulfate 90 mcg/actuation 1 puff inhalation Q4HP PRN 11/22/23 11/22/23 History aerosol inhaler Shortness Of Breath cyclobenzaprine 10 mg tablet 10 mg PO BIDP PRN Muscle Spasm 11/22/23 11/22/23 History methocarbamol 500 mg tablet 500 mg PO Q6H PRN pain #30 tabs 11/22/23 Rx New Prescriptions to Start Prescriptions: methocarbamol Carlos Fernández Allergies Allergy/AdvReac Type Severity Reaction Status Date / Time ILOSOME Allergy Unknown I-RASH Uncoded 11/20/23 19:12 Exam Data for Last 24 hours Vital signs and Labs for Last 24 Hours: Temp Pulse Resp BP Pulse Ox O2 Del Method 98.3 F 82 20 123/82 97 Room Air 11/22/23 03:40 11/22/23 09:30 11/22/23 03:40 11/22/23 09:30 11/22/23 09:30 11/22/23 09:30 I & O for Last 24 hours: Intake & Output 11/19/23 11/20/23 11/21/23 11/22/23 11:59 11:59 11:59 11:59 Weight 210 lb Constitutional Constitutional: mild distress (Crying with pain) *Routine HEENT Exam Head: Present normocephalic and atraumatic Eye: Present PERRL; Absent conjunctival icterus, scleral injection or conjunctivae pink ENT: Present mucous membranes moist, oropharynx clear, dentition normal and nares patent *Routine Neck Exam Neck: Present supple; Absent carotid bruit, lymphadenopathy or thyromegaly *Routine Respiratory Exam Respiratory: Present CTA bilaterally *Routine Cardiovascular Exam Cardiovascular: Present RRR *Routine Abdominal Exam Abdominal: Present soft and normoactive bowel sounds; Absent tenderness or distended *Routine Rectal Exam Rectal:: deferred *Routine Genitalia Exam Genitalia:: deferred *Routine Extremities Exam Extremities: Present full ROM (Moves legs with discomfort); Absent edema Routine Back/Spine/Pelvis Exam Back/Spine: Present muscle spasm *Routine Neurological Exam Neurological: Present alert and oriented X3 Assessment and Plan *Assessment and plan (1) Low back pain with sciatica: Status: Acute Qualifiers: Back pain laterality: right Chronicity: acute Sciatica laterality: sciatica of right side Qualified Code(s): M54.41 - Lumbago with sciatica, right side Category: Medical Code(s): M54.40 - Lumbago with sciatica, unspecified side (2) Intractable back pain: Status: Acute Category: Medical Code(s): M54.9 - Dorsalgia, unspecified (3) Lumbar disc disease with radiculopathy: Status: Acute Category: Medical Code(s): M51.16 - Intervertebral disc disorders with radiculopathy, lumbar region Plan Pain management. Will add gabapentin. He remains on Dilaudid for the acute pain
[2023-11-22 09:59] LABS: MANUAL DIFFERENTIAL MANUAL DIFFERENTIAL (MANUAL DIFF)
--- NOTE | 2023-11-22 10:03 | PC.NURSE ---
rounded on pt he states he is pain er nurse aware garrick from dr connelly office spoke with nurse
[2023-11-22 10:15] LABS: Alanine Aminotransferase 27 U/L (12-78); Albumin Level 3.8 g/dl (3.5-5.0); Albumin/Globulin Ratio 1.5 (1.1-1.8); Alkaline Phosphatase 64 U/L (38-126); Anion Gap 9.9 mEq/L (5-15); Aspartate Amino Transferase 25 U/L (17-59); Bilirubin,Total 0.6 mg/dl (0.2-1.3); Blood Urea Nitrogen 22 mg/dl (9-20); Carbon Dioxide 31 mmol/L (22.0-30.0); Chloride 101 mmol/L (98-107); Creatinine Clearance Estimated 125 mL/min (50-200); Estimated Glomerular Filt Rate 88 ml/min (>60); GFR (African American) 106 ML/MIN (>60); Globulin 2.6 g/dL (1.3-3.2); Glucose 113 mg/dl (74-100); Potassium 4.9 mmoL/L (3.5-5.1); Sodium 137 mmol/L (136-145); Total Protein,Serum 6.4 g/dl (6.3-8.2)
[2023-11-22 10:19] LABS: Basophils % 0.2 % (0.1-2.0); Eosinophils % 0.1 % (0.1-12.0); Hematocrit 45.7 % (42.0-52.0); Hemoglobin 14.7 g/dL (14.1-18.0); Lymphocytes # 1.4 K/mm3 (0.7-4.5); Mean Corpuscular HGB Conc 32.3 g/dL (31.8-35.4); Mean Corpuscular Hemoglobin 28.8 pg (27.0-31.2); Mean Corpuscular Volume 89.4 fl (80-94); Mean Platelet Volume 7.8 fl (7.4-10.4); Monocytes # 0.9 K/mm3 (0.1-1.0); Monocytes % 5.8 % (1.7-9.3); Neutrophils # 13.4 K/mm3 (1.8-7.8); Neutrophils % 84.9 % (37.0-80.0); Platelet Count 265 K/mm3 (142-424); Red Blood Count 5.11 M/mm3 (4.60-6.20); Red Cell Distribution Width 14.4 % (11.5-17.5); White Blood Count 15.8 K/mm3 (4.8-10.8)
[2023-11-22] MEDS: CYCLOBENZAPRINE 10MG TABLET 10 MG PO (10:21)
--- NOTE | 2023-11-22 10:48 | HMH.PHAINT1 ---
Pharmacy Intervention Comments: MEDICATION RECONCILIATION COMPLETED ON PATIENT USING EXTERNAL FILL HISTORY FROM PHARMACY AND DISCHARGE SUMMARIES FROM RECENT UTC/ER VISITS.
[2023-11-22 11:04] LABS: Lymphocytes % 19 % (10-50); Monocytes % 5 % (2-9); Neutrophils % 76 % (42-76); Platelet Estimate Normal; RBC Morphology Normal; Total Cells Counted 100
[2023-11-22] MEDS: GABAPENTIN 300MG CAPSULE 300 MG PO ×2 (11:25→20:01)
--- NOTE | 2023-11-22 12:19 | PC.NURSE ---
rounded on pt he is snoring and snoozing in bed, call light in reach
--- NOTE | 2023-11-22 12:54 | PC.NURSE ---
report called to ceci on second floor
--- NOTE | 2023-11-22 13:19 | PC.NURSE ---
arrived by stretcher from ED
[2023-11-22 15:33] LABS: Microscopic, Urine URINE MICROSCOPIC (MICROSCOPIC)
[2023-11-22 15:37] LABS: Appearance,Urine CLEAR (Clear); Bilirubin,Urine Negative (Negative); Blood, Urine Negative (Negative); Color,Urine YELLOW (Yellow); Glucose,Urine (UA) Negative (Negative); Ketones,Urine Negative (Negative); Leukocyte Esterase,Urine Negative (Negative); Nitrate,Urine Negative (Negative); Protein,Urine TRACE (Negative); Specific Gravity, Urine >= 1.030 (1.005-1.030); Urobilinogen,Urine 0.2 EU/dl (0.2)
[2023-11-22 15:58] LABS: Bacteria,Urine Trace /lpf; Mucus,Urine Trace /lpf; RBC,Urine Occasional #/hpf (0-3); Squamous Epithelial Cell,Urine Occasional #/hpf (0-5); WBC,Urine Occasional #/hpf (0-3)
--- NOTE | 2023-11-22 19:10 | PC.NURSE ---
no issues since coming to floor, no complaints of pain. pt has family at bs.
[2023-11-23] MEDS: CYCLOBENZAPRINE 10MG TABLET 10 MG PO ×2 (02:23→11:15)
[2023-11-23 04:00] VITALS: BP 124/81; PULSE 74; RESP 17; TEMP 36.6; O2SAT 99; BMI 30.7
[2023-11-23 08:00] VITALS: BP 130/80; PULSE 78; RESP 18; TEMP 36.7; O2SAT 93
[2023-11-23] MEDS: OXYCODONE 5MG IMMEDIATE RELEASE TABLET 5 MG PO (08:04)
[2023-11-23] MEDS: GABAPENTIN 300MG CAPSULE 300 MG PO (08:04)
--- NOTE | 2023-11-23 08:17 | EXP.ACUTE.PN ---
Subjective *Date: 11/23/23 *Time: 08:52 Interval history: Patient states pain is much improved and less frequent. He was able to sleep during the night. He did require p.o. pain medicine in the middle of the night. The pain is at the right hip area and radiates down the front of the right leg. Physical therapy did see patient this morning. He has been ambulating to the bathroom and did ambulate with their visit; after this and with movement with exam he did have some discomfort in that right hip area radiating down the thigh. He has been able to eat without difficulties. He is voiding QS. He passes flatus but bowels have not moved. Medical Exam Vital signs and Labs for Last 24 Hours: Vital Signs Temp Pulse Pulse Resp BP BP Pulse Ox 11/23/23 08:00 11/23/23 06:40 11/23/23 04:49 11/23/23 04:00 97.9 F 74 17 124/81 99 11/23/23 03:00 11/23/23 01:00 11/22/23 23:00 11/22/23 21:00 11/22/23 20:00 98.5 F 94 H 17 135/79 94 L 11/22/23 19:37 11/22/23 18:37 11/22/23 17:00 11/22/23 15:00 11/22/23 14:03 98.1 F 68 18 118/68 92 L 11/22/23 14:00 11/22/23 13:19 98.0 F 87 16 114/72 11/22/23 13:00 11/22/23 12:00 87 114/72 95 11/22/23 11:30 76 119/74 92 L 11/22/23 11:00 75 121/81 94 L 11/22/23 10:30 77 118/84 96 11/22/23 10:00 74 131/89 94 L 11/22/23 09:30 82 123/82 97 11/22/23 09:14 94 H 134/84 97 O2 Del Method 11/23/23 08:00 Room Air 11/23/23 06:40 Room Air 11/23/23 04:49 Room Air 11/23/23 04:00 Room Air 11/23/23 03:00 Room Air 11/23/23 01:00 Room Air 11/22/23 23:00 Room Air 11/22/23 21:00 Room Air 11/22/23 20:00 Room Air 11/22/23 19:37 Room Air 11/22/23 18:37 Room Air 11/22/23 17:00 Room Air 11/22/23 15:00 Room Air 11/22/23 14:03 Room Air 11/22/23 14:00 Room Air 11/22/23 13:19 11/22/23 13:00 Room Air 11/22/23 12:00 Room Air 11/22/23 11:30 Room Air 11/22/23 11:00 Room Air 11/22/23 10:30 Room Air 11/22/23 10:00 Room Air 11/22/23 09:30 Room Air 11/22/23 09:14 Room Air Intake and Output 11/22/23 11/23/23 11/23/23 19:59 03:59 11:59 Intake Total 540 / 540 Output Total 0 / 0 Balance 540 / 540 0 / 540 Intake: Intake, Oral Amount 540 / 540 Output: Output, Urine Amount 0 / 0 Other: Number of Unmeasured Voids 1 Weight 214 lb 3 oz 214 lb 4.629 oz Patient Weight 11/23/23 11:59 Weight 214 lb 4.629 oz Laboratory Results - last 24 hr 11/22/23 08:00: WBC 15.8 H, RBC 5.11, Hgb 14.7, Hct 45.7, MCV 89.4, MCH 28.8, MCHC 32.3, RDW 14.4, Plt Count 265, MPV 7.8, Neut % (Auto) 84.9 H, Lymph % (Auto) 9.0 L, [place] % (Auto) 5.8, Eos % (Auto) 0.1, Baso % (Auto) 0.2, Neut # (Auto) 13.4 H, Lymph # (Auto) 1.4, [place] # (Auto) 0.9, Eos # (Auto) 0.0, Baso # (Auto) 0.0, Total Counted 100, Neutrophils % (Manual) 76, Lymphocytes % (Manual) 19, Monocytes % (Manual) 5, Platelet Estimate Normal, RBC Morphology Normal, Sodium 137, Potassium 4.9, Chloride 101, Carbon Dioxide 31 H, Anion Gap 9.9, BUN 22 H, Creatinine 0.90, Estimated Creat Clear 125, Estimated GFR 88, Est GFR ( Amer) 106, Glucose 113 H, Calcium 9.0, Total Bilirubin 0.6, AST 25, ALT 27, Alkaline Phosphatase 64, Total Protein 6.4, Albumin 3.8, Globulin 2.6, Albumin/Globulin Ratio 1.5 11/22/23 15:27: Urine Color Yellow, Urine Appearance Clear, Urine pH 6.0, Ur Specific [place] >= 1.030, Urine Protein Trace, Urine Glucose (UA) Negative, Urine Ketones Negative, Urine Blood Negative, Urine Nitrate Negative, Urine Bilirubin Negative, Urine Urobilinogen 0.2, Ur Leukocyte Esterase Negative, Urine RBC Occasional, Urine WBC Occasional, Ur Squamous Epith Cells Occasional, Urine Bacteria Trace, Hyaline Casts 3-5, Urine Mucus Trace I & O for Labs for Last 24 Hours: Intake & Output 11/20/23 11/21/23 11/22/23 11/23/23 11:59 11:59 11:59 11:59 Intake Total 540 / 540 Output Total 0 / 0 Balance 540 / 540 Weight 210 lb 214 lb 4.629 oz Constitutional: Present no acute distress Comment:: Initially sitting up in the bed eating his breakfast. He appears comfortable at this point. After exam and sitting on the side of the bed he did experience right hip pain with sciatica. Respiratory: Present CTA bilaterally (Anteriorly and posteriorly) Cardiac: Present Reg Rate and Rhythm GI: Present soft and normal bowel sounds; Absent distention or tenderness Extremities: Present full ROM; Absent tenderness or edema Comment:: Difficulty with moving the right leg due to pain Neuro: Present alert and oriented x 3 Additional Findings:: Nontender lumbar sacral spine. Tender to palpation in the right hip.. Sore anterior right thigh. Discomfort with range of motion of the right leg Assessment and Plan *Assessment and plan (1) Low back pain with sciatica: Status: Acute Qualifiers: Back pain laterality: right Chronicity: acute Sciatica laterality: sciatica of right side Qualified Code(s): M54.41 - Lumbago with sciatica, right side Category: Medical Code(s): M54.40 - Lumbago with sciatica, unspecified side (2) Intractable back pain: Status: Acute Category: Medical Code(s): M54.9 - Dorsalgia, unspecified (3) Lumbar disc disease with radiculopathy: Status: Acute Category: Medical Code(s): M51.16 - Intervertebral disc disorders with radiculopathy, lumbar region (4) Muscle spasm: Status: Acute Category: Medical Code(s): M62.838 - Other muscle spasm Plan Physical therapy notation reviewed and appreciated. Will probably discharge home today with PT referral. Cautioned patient on activities.
--- NOTE | 2023-11-23 08:30 | PC.NURSE ---
pt called out in severe pain down rt leg after walking to the bathroom and standing to brushing teeth. applied pressure to rt lower back with no relief from pain. only pain relief at this time is lying down. will notify max when he comes to the floor.
[2023-11-23 08:40] LABS: Basophils % 0.2 % (0.1-2.0); Eosinophils % 0.1 % (0.1-12.0); Hematocrit 45.4 % (42.0-52.0); Hemoglobin 14.7 g/dL (14.1-18.0); Lymphocytes # 1.5 K/mm3 (0.7-4.5); Lymphocytes % 8.1 % (10-50); Mean Corpuscular HGB Conc 32.4 g/dL (31.8-35.4); Mean Corpuscular Hemoglobin 28.6 pg (27.0-31.2); Mean Corpuscular Volume 88.5 fl (80-94); Mean Platelet Volume 7.6 fl (7.4-10.4); Monocytes % 5.3 % (1.7-9.3); Neutrophils # 15.5 K/mm3 (1.8-7.8); Neutrophils % 86.3 % (37.0-80.0); Platelet Count 267 K/mm3 (142-424); Red Blood Count 5.13 M/mm3 (4.60-6.20); Red Cell Distribution Width 14.6 % (11.5-17.5)
[2023-11-23 08:41] LABS: MANUAL DIFFERENTIAL MANUAL DIFFERENTIAL (MANUAL DIFF)
[2023-11-23 08:49] LABS: Anion Gap 11.1 mEq/L (5-15); Blood Urea Nitrogen 23 mg/dl (9-20); Calcium 8.8 mg/dl (8.4-10.2); Carbon Dioxide 28 mmol/L (22.0-30.0); Chloride 103 mmol/L (98-107); Creatinine Clearance Estimated 143 mL/min (50-200); Estimated Glomerular Filt Rate 100 ml/min (>60); GFR (African American) 121 ML/MIN (>60); Glucose 104 mg/dl (74-100); Potassium 4.1 mmoL/L (3.5-5.1); Sodium 138 mmol/L (136-145)
--- NOTE | 2023-11-23 09:02 | HMH.PTEV ---
Physical Therapy Evaluation Rehab PT IP Evaluation Start: 11/22/23 14:22 Freq: ONCE Status: Active Protocol: Document 11/23/23 07:55 MANUEL (Rec: 11/23/23 08:00 MAUNEL Desktop) Subjective/History History History Per H&P: 53-year-old male with extensive history of chronic back pain presents with acute worsening of back pain. He reports that approximately 10 to 15 years ago he had a thorough evaluation for possible surgical intervention but was told he is not a candidate at that time. He earlier this year had a severe worsening of back pain and was started on physical therapy with marked improvement. Last month the pain returned. For the last couple of days he has had much more severe pain. He reports it is consistent with his normal pain. Low back, right- sided in nature with radiation down the right leg. He denies any history of IV drug use or immunocompromise. He denies any recent falls or trauma. Denies any recent fever or illness. He reports no weakness numbness or incontinence or retention. Denies any perineal sensation changes. He was seen in urgent care yesterday and was prescribed Flexeril and prednisone which he has been taking without improvement in symptoms. Subjective Subjective PLOF per pt report: Living with in a 2-story home. IND with ADLs and functional mobility. Intermittent use of SPC when having flare up of chronic LBP with radiculopathy . New diagnosis of cancer in past 12 No months? Rehab PT IP Eval Objective Appearance Patient Behavior Appropriate,Cooperative Patient Orientation Person,Place,Situation Difficulty following instructions none Speech Pattern Clear Ambulation Patient Able to Ambulate Yes Ambulation Observation IP General Gait Pattern Observation Antalgic Gait Ambulation Distance (feet) 20 Ambulation Assistive Device Straight Cane Ambulation Ability Supervision/Stand by Balance Ability to Arise Able, uses arms to help Sitting Balance Steady, safe Standing Balance Steady, wide stance Dynamic Sitting Balance Ability Good Dynamic Standing Balance Ability Good Transfers Bed Transfer Ability Supervision/Stand by Sit to Stand Bed Transfer Ability Supervision/Stand by Sit to Stand Chair Transfer Ability Supervision/Stand by Rehab PT IP prob,goals,plan Problems Date of Evaluation: 11/23/23 Rehab Potential Rehab Potential Innapropriate for Skilled Therapy Discharge Plan PT Discharge Plan Pt at baseline with his mobility and is inappropriate for skilled acute care PT. Pt' s primary complaint is LBP and leg pain. PT recommending OP PT services to address deficits. Pt safe to d/c home when deemed medically necessary. Eval Complexity Eval Charge Codes 69764 - Low Complexity PHYSICIAN CERTIFICATION: I certify the specified therapy services for David Fernández are required, authorized, and reviewed every 30 days.
[2023-11-23 09:18] LABS: Lymphocytes % 13 % (10-50); Monocytes % 5 % (2-9); Neutrophils % 82 % (42-76); Platelet Estimate Normal; RBC Morphology Normal; Total Cells Counted 100
[2023-11-23 09:21] LABS: Prostate Specific Ag, Diagnost 3.68 ng/ml (0.0-4.0)
--- NOTE | 2023-11-23 11:55 | HMH.PHAINT1 ---
Pharmacy Intervention Comments: DISCHARGE MEDICATION COUNSELING PROVIDED. DISCUSSED CHANGE ON PREDNISONE FROM 20 MG TWICE DAILY TO 20 MG DAILY. DO NOT TAKE THE ROBAXIN. START THE FOLLOWING: -GABAPENTIN (FOR PAIN, TWICE DAILY, DIZZINESS, SEDATION, SLOWED BREATHING POSSIBLE) -OXYCODONE (FOR SEVERE PAIN, EVERY 6 HOURS NEEDED, TAKE WITH FOOD, N/V POSSIBLE, CONSTIPATION POSSIBLE, MAY CAUSE SEDATION, DRY MOUTH, SLOWED BREATHING. DO NOT DRIVE/OPERATE MACHINERY UNTIL YOU KNOW HOW THIS WILL AFFECT YOU). NO QUESTIONS AT THIS TIME.
--- NOTE | 2023-11-25 07:55 | EXP.DC.SUM ---
General Admission date:: 11/22/23 Discharge date: 11/23/23 HPI HPI HPI: HPI narrative: 53-year-old male with extensive history of chronic back pain presents with acute worsening of back pain. He reports that approximately 10 to 15 years ago he had a thorough evaluation for possible surgical intervention but was told he is not a candidate at that time. He earlier this year had a severe worsening of back pain and was started on physical therapy with marked improvement. Last month the pain returned. For the last couple of days he has had much more severe pain. He reports it is consistent with his normal pain. Low back, right-sided in nature with radiation down the right leg. He denies any history of IV drug use or immunocompromise. He denies any recent falls or trauma. Denies any recent fever or illness. He reports no weakness numbness or incontinence or retention. Denies any perineal sensation changes. He was seen in urgent care yesterday and was prescribed Flexeril and prednisone which he has been taking without improvement in symptoms. Medical Decision Narrative: 53-year-old male with history of chronic low back pain presents with severe acute on chronic low back pain with right-sided radiation. History was obtained interactive discussion with patient, family, chart review. On arrival, patient is [afebrile, hemodynamically stable, satting appropriately, alert, oriented x4, GCS 15], moving all extremities spontaneously. Full physical exam performed and significant for completely normal neurologic exam Differential includes but is not limited to degenerative disc disease, herniated disc, cauda equina, epidural hematoma, epidural abscess, lumbar fracture, malignancy. Patient was given IM Toradol, IM morphine, p.o. Tylenol, lidocaine patch, Robaxin for symptomatic management and correction of underlying abnormalities. On re-evaluation, patient reports no significant improvement in pain. Given the severity of pain, will evaluate with CT lumbar spine. Imaging independently interpreted by me and significant for mild degenerative disc disease without acute mass lesion, fracture or evidence of cord compression.. See radiology read for full review of final results. MRI of the lumbar spine was considered, but deemed unnecessary due to no history or exam findings that are consistent with spinal cord compressive pathology.. Given patient history, exam and workup, patient's presentation most likely represents acute on chronic degenerative disc disease and low back pain/sciatica. I had extensive and repeated discussion with patient regarding symptom control. Recommend that he follow-up with our pain specialist Dr. Pena for further assessment as well as with PCP, also recommend he reinitiate physical therapy. Patient was prescribed lidocaine patches and Robaxin.. On reassessment, patient was unable to get into a seated position to be able to safely transport at home. I had repeated discussion with family regarding his care. Given the severity of his pain, I spoke with Dr. Tilley who accepted the patient on behalf of Dr. North for admission for further assessment of intractable low back pain. Patient was given IM Dilaudid as well as p.o. gabapentin The above as per ER documentation Lumbar spine CT: FINDINGS: Bones/joints: No acute fracture. Normal alignment. Mild narrowing at L5-S1 with marginal osteophyte. No significant disc bulge or herniation. No severe spinal canal stenosis. No significant neural foraminal narrowing. Soft tissues: Unremarkable. IMPRESSION: Mild DJD. No acute finding Lumbar/sacral spine x-ray IMPRESSION: 1. No acute lumbar fracture or traumatic subluxation. 2. Moderate degenerative disc disease L2-L3. 3. Mild degenerative disc disease and facet joint spondylosis elsewhere. With this visit in the ER awaiting bed assignment patient continues to be in severe discomfort. He recently had Dilaudid 1 mg IV 20 minutes ago as well as Solu-Medrol 125 mg IV. The pain comes in spasms. He is crying with discomfort. Discussed with Dr. North and will admit for pain control as per orders. Hospital Course Hospital Course Hospital Course: With evaluation in the emergency room x-ray showed no acute fracture or traumatic subluxation and did indicate moderate degenerative disc disease. Patient received pain medicine, muscle relaxants and steroids in the ER. This was followed by p.o. pain medicine and muscle relaxants after admission. The following day after admission patient had been able to sleep and pain was much improved with less frequency and intensity. The pain did continue to radiate down the right anterior leg. Physical therapy had been consulted and noted that he was able to ambulate without difficulty. On this date he was discharged home with p.o. pain medicine and gabapentin. Follow-up with pain management and Dr. North. Exam Data for Last 24 hours Vital signs and Labs for Last 24 Hours: Temp Pulse Resp BP Pulse Ox O2 Del Method 98.0 F 78 18 130/80 93 L Room Air 11/23/23 08:00 11/23/23 08:00 11/23/23 08:00 11/23/23 08:00 11/23/23 08:00 11/23/23 09:00 I & O for Last 24 hours: Intake & Output 11/22/23 11/23/23 11/24/23 11/25/23 11:59 11:59 11:59 11:59 Intake Total 780 / 780 Output Total 0 / 0 Balance 780 / 780 Weight 210 lb 214 lb 4.629 oz Narrative: Constitutional: Present no acute distress Comment:: Initially sitting up in the bed eating his breakfast. He appears comfortable at this point. After exam and sitting on the side of the bed he did experience right hip pain with sciatica. Respiratory: Present CTA bilaterally (Anteriorly and posteriorly) Cardiac: Present Reg Rate and Rhythm GI: Present soft and normal bowel sounds; Absent distention or tenderness Extremities: Present full ROM; Absent tenderness or edema Comment:: Difficulty with moving the right leg due to pain Neuro: Present alert and oriented x 3 Additional Findings:: Nontender lumbar sacral spine. Tender to palpation in the right hip.. Sore anterior right thigh. Discomfort with range of motion of the right leg Results Data Completed and Pending Completed studies during hospitalization [Text1]: 11/22/23 08:00: WBC 15.8 H, RBC 5.11, Hgb 14.7, Hct 45.7, MCV 89.4, MCH 28.8, MCHC 32.3, RDW 14.4, Plt Count 265, MPV 7.8, Neut % (Auto) 84.9 H, Lymph % (Auto) 9.0 L, [place] % (Auto) 5.8, Eos % (Auto) 0.1, Baso % (Auto) 0.2, Neut # (Auto) 13.4 H, Lymph # (Auto) 1.4, [place] # (Auto) 0.9, Eos # (Auto) 0.0, Baso # (Auto) 0.0, Total Counted 100, Neutrophils % (Manual) 76, Lymphocytes % (Manual) 19, Monocytes % (Manual) 5, Platelet Estimate Normal, RBC Morphology Normal, Sodium 137, Potassium 4.9, Chloride 101, Carbon Dioxide 31 H, Anion Gap 9.9, BUN 22 H, Creatinine 0.90, Estimated Creat Clear 125, Estimated GFR 88, Est GFR ( Amer) 106, Glucose 113 H, Calcium 9.0, Total Bilirubin 0.6, AST 25, ALT 27, Alkaline Phosphatase 64, Total Protein 6.4, Albumin 3.8, Globulin 2.6, Albumin/Globulin Ratio 1.5 11/22/23 15:27: Urine Color Yellow, Urine Appearance Clear, Urine pH 6.0, Ur Specific [place] >= 1.030, Urine Protein Trace, Urine Glucose (UA) Negative, Urine Ketones Negative, Urine Blood Negative, Urine Nitrate Negative, Urine Bilirubin Negative, Urine Urobilinogen 0.2, Ur Leukocyte Esterase Negative, Urine RBC Occasional, Urine WBC Occasional, Ur Squamous Epith Cells Occasional, Urine Bacteria Trace, Hyaline Casts 3-5, Urine Mucus Trace DS: Diagnosis Discharge Diagnosis (1) Low back pain with sciatica: Status: Acute Code(s): M54.40 - Lumbago with sciatica, unspecified side Qualifiers: Back pain laterality: right Chronicity: acute Sciatica laterality: sciatica of right side Qualified Code(s): M54.41 - Lumbago with sciatica, right side (2) Intractable back pain: Status: Acute Code(s): M54.9 - Dorsalgia, unspecified (3) Lumbar disc disease with radiculopathy: Status: Inactive Code(s): M51.16 - Intervertebral disc disorders with radiculopathy, lumbar region (4) Muscle spasm: Status: Acute Code(s): M62.838 - Other muscle spasm Meds Home Medications and Allergies Home Medications Medication Instructions Recorded Confirmed Type albuterol sulfate 90 mcg/actuation 1 puff inhalation Q4HP PRN 11/22/23 11/22/23 History aerosol inhaler Shortness Of Breath cyclobenzaprine 10 mg tablet 10 mg PO BIDP PRN Muscle Spasm 11/22/23 11/22/23 History gabapentin 300 mg capsule 300 mg PO BID #60 caps 11/23/23 Rx oxycodone 5 mg tablet 5 mg PO Q6HP PRN Severe Pain 11/23/23 Rx (7-10) #10 tabs prednisone 20 mg tablet 20 mg PO DAILY 5 days #10 tabs 11/23/23 11/22/23 Rx New Prescriptions to Start Prescriptions: gabapentin Lauren North oxycodone Lauren North Allergies Allergy/AdvReac Type Severity Reaction Status Date / Time ILOSOME Allergy Unknown I-RASH Uncoded 11/20/23 19:12 Discharge Plan Disposition Patient Disposition: Home, Self-Care Condition: Fair Follow up Plan Follow up with: Rey Pena MD [Staff Physician] - Enter time for follow up (office to call with appointment ) Lauren North MD [Primary Care Provider] - 12/02/23 1:30 pm Prescriptions/Medication Reconciliation: New gabapentin 300 mg Capsule 300 mg PO BID Qty: 60 0RF oxycodone 5 mg Tablet 5 mg PO Q6HP PRN (Reason: Severe Pain (7-10)) Qty: 10 0RF Continued albuterol sulfate 90 mcg/actuation HFA aerosol inhaler 1 puff INHALATION Q4HP PRN (Reason: Shortness Of Breath) Patient Comments: INHALE 1 PUFF BY MOUTH EVERY 4 HOURS NEEDED cyclobenzaprine 10 mg tablet 10 mg PO BIDP PRN (Reason: Muscle Spasm) Changed prednisone 20 mg tablet 20 mg PO DAILY 5 Days Qty: 10 0RF Problem Reconciliation Problems Reviewed?: Yes Patient Discharge Instructions ACTIVITY: Bed rest DIET: advance to your usual diet Patient Instructions: Managing Chronic Low Back Pain, Low Back Pain Providers Primary Care Provider: Lauren North Admit Provider: Joo Patterson Attending Provider: Lauren North
== END 2023-11-23 11:34 | disposition home or self-care (01) ==
LOC: ER 05:59 → 2ND 13:21
PROVIDERS: Nurse Practitioner Family; Admitting Provider Internal Medicine Adolescent Medicine; Emergency Provider Emergency Medicine; PCP Family Medicine; Visit Provider Family Medicine
DX: M54.41 Lumbago with sciatica, right side (principal); G89.29 Other chronic pain; M54.9 Dorsalgia, unspecified; M62.838 Other muscle spasm
CPT/HCPCS: 36415; 72131; 80048; 80053; 81001; 84153; 85007; 85014; 85018; 85025; 85048; 85049; 97161; 99285; G0378

== ENCOUNTER 2023-12-09 10:31 | Outpatient (POV) | payer BC, SELFPAY ==
[2023-12-09 11:04] VITALS: BP 116/80; PULSE 129; RESP 18; O2SAT 95; BMI 30.1
--- NOTE | 2023-12-09 11:55 | A.OFFVIS_ITS ---
HPI Data of Consult Patient: new to practice Consult date: 12/09/23 Requesting Physician: Helene Blood APRN Primary Care Provider: Lauren North MD Consult Narrative Reason for consult: Low back pain, right leg pain History of present illness: Mr. Fernández is a 53 year old male who presents today as a new patient. He is a referral from Dr. North's office. Today he rates his pain a 4 out of 10 however states that the pain will go up much higher to a 10 out of 10. He states that he has had chronic low back pain in the past however this knee pain has really been going on since around November. He describes it as a sharp burning sensation that radiates down his entire right leg. He denies any specific trauma or injury that initially started this symptoms. 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 He denies any prior surgery. Patient has tried [id number] medications such as Tylenol and ibuprofen along with heat and ice and topicals with minimal relief. Patient denies any recent injection therapy however states in the past he has had epidurals but cannot remember how well they work. Patient denies any chiropractor history. He has had physical therapy in the past and stated it made his pain worse however he is scheduled to start this therapy back on the of this month. Patient states he is interested in any help we may be able to provide because the pain is interfering with his ability perform activities of daily living such as cooking and cleaning. Patient is currently managed with oxycodone, gabapentin and cyclobenzaprine from outside providers. His Owen has been reviewed and is appropriate. CC: Helene Blood APRN [facility] Disclaimer: The information contained in this section may have been updated after the patient was seen, as this information can be updated by other users. Medical History (Updated 12/09/23 @ 12:00 by Helene Blood APRN) Bronchitis Sinusitis Pleurisy Lumbar disc disease with radiculopathy Tympanosclerosis Deviated septum Sinus congestion History of stomach ulcers History of asthma Chronic sinusitis Surgical History Hx of bilateral inguinal hernia repair History of placement of ear tubes Social History (Updated 12/09/23 @ 11:04 by Corinne Bey RN) Smoking Status: Never smoker alcohol intake: never substance use type: denies use current occupational status: employed and other Travel in the last 8 weeks: None household members: family housing: house Review of Systems Review of Systems Review of systems:: pertinent systems reviewed and negative unless documented below Review of systems (narrative): Review of Systems: General: No recent weight changes, no fever, no sleep disturbances Respiratory: No cough, no shortness of air, no recurring pulmonary infections Cardiovascular/peripheral vascular: No chest pain, no palpitations, no edema, no shortness of breath Gastrointestinal: No new onset incontinence, normal bowel movements reported Genitourinary: No new onset incontinence Musculoskeletal: Low back pain, right leg pain Psychiatric: [Normal mood/affect] Neurological: [Denies weakness in extremities], [denies balance issues] Meds Home Medications and Allergies Home Medications Medication Instructions Recorded Confirmed Type albuterol sulfate 90 mcg/actuation 1 puff inhalation Q4HP PRN 11/22/23 11/22/23 History aerosol inhaler Shortness Of Breath cyclobenzaprine 10 mg tablet 10 mg PO BIDP PRN Muscle Spasm 11/22/23 11/22/23 History gabapentin 300 mg capsule 300 mg PO BID #60 caps 11/23/23 12/09/23 Rx oxycodone 5 mg tablet 5 mg PO Q6HP PRN Severe Pain 11/23/23 Rx (7-10) #10 tabs New Prescriptions to Start Prescriptions: Allergies Allergy/AdvReac Type Severity Reaction Status Date / Time ILOSOME Allergy Unknown I-RASH Uncoded 11/20/23 19:12 Objective Vital signs: Pulse Resp BP Pulse Ox O2 Del Method 129 H 18 116/80 95 Room Air 12/09/23 11:04 12/09/23 11:04 12/09/23 11:04 12/09/23 11:04 12/09/23 11:04 Narrative: Physical Exam: General: Alert and oriented x3, no acute distress, pleasant and cooperative Lungs: Respirations even and unlabored, symmetrical chest expansion Eyes: PERRL Musculoskeletal: Flexion and extension of lumbar [spine] somewhat guarded secondary to pain, [antalgic gait noted] positive right leg raise with decreased sensation to light touch and decreased reflexes Neurological: Speech clear, no gross sensory deficit Additional findings Additional findings: Lumbar MRI without Findings: Multiplanar MR imaging of the lumbar spine was performed without contrast. On the sagittal T2 weighted images there is abnormal decreased signal throughout the lumbar days. There is loss of height of L1-L2, L2-L3, L4-L5, and L5-S1 disc. There is vertebral are of normal height. Vertebral alignment is normal. L1-2: Annular disc bulge is present. No significant stenosis or neuroforaminal narrowing. L2-L3. A small annular bulge is present with mild bilateral neuroforaminal narrowing. L3-L4: Moderate annular bulge is present with right posterior lateral disc protrusion and moderate right neuroforaminal narrowing. L4-L5: Midline and left paracentral disc protrusion is present producing mild left lateral recess narrowing and mild bilateral neuroforaminal narrowing best seen on images 18 series 7. L5-S1: There is a midline and right paracentral disc protrusion with a small annular tear and mild right lateral recess narrowing Assessment and Plan *Assessment and plan (1) Degenerative disc disease, lumbar: Status: Acute Category: Medical Code(s): M51.36 - Other intervertebral disc degeneration, lumbar region (2) Lumbar radiculopathy: Status: Acute Category: Medical Code(s): M54.16 - Radiculopathy, lumbar region (3) Lumbar spinal stenosis: Status: Acute Qualifiers: Neurogenic claudication status: with neurogenic claudication Qualified Code(s): M48.062 - Spinal stenosis, lumbar region with neurogenic claudication Category: Medical Code(s): M48.061 - Spinal stenosis, lumbar region without neurogenic claudication (4) Right leg pain: Status: Acute Category: Medical Code(s): M79.604 - Pain in right leg Plan Patient is experiencing significant pain throughout his low back with radiating symptoms down his entire right extremity. Patient did have limited range of motion of his lumbar spine with a positive right leg raise and decreased sensation to light touch and decreased reflexes. I have discussed with the patient that he may benefit from a right transforaminal epidural steroid injection. Risk and benefits were discussed with patient and he would like to proceed forward with this plan of care. I will also order the patient a compounded cream. Patient has tried and failed conservative therapy for longer than 3 weeks with minimal relief. We will schedule the patient for a right transforaminal epidural steroid injection L3-L4 and L4-L5 under fluoroscopy. Patient has been instructed to contact the clinic with any concerns before the next appointment. Dr. Pena has reviewed this note and agrees with this plan of care. This note was dictated using voice recognition software and make contain errors or omissions.
== END 2023-12-09 23:59 | disposition home or self-care (01) ==
LOC: SC.PAIN 10:31
PROVIDERS: PCP Family Medicine; Visit Provider Nurse Practitioner Family
DX: M51.16 Intervertebral disc disorders with radiculopathy, lumbar region (principal); M48.062 Spinal stenosis, lumbar region with neurogenic claudication; M79.604 Pain in right leg
CPT/HCPCS: 99202; G0463

== ENCOUNTER 2023-12-28 08:33 | Day surgery (SDC) | payer BC, SELFPAY ==
[2023-12-28 08:49] VITALS: BP 122/81; PULSE 119; RESP 18; TEMP 37; O2SAT 92; BMI 30.8
[2023-12-28 09:05] VITALS: BP 135/87; PULSE 118; RESP 18; O2SAT 95
[2023-12-28] MEDS: LIDOCAINE 1% 5ML PF VIAL 5 ML (09:05)
[2023-12-28 09:06] VITALS: BP 135/87; PULSE 118; RESP 18; O2SAT 95
--- NOTE | 2023-12-28 09:14 | EXP.PAIN.PRO ---
Procedure Date: 12/28/23 Time: 08:40 Anesthesiologist:: Gabino Mon CRNA Complications:: None Pre-procedure Diagnosis:: Degenerative disc lumbar spine multilevels. Lumbar radiculopathy. Lumbar disc bulge L3-4, L4-5. Post-procedure Diagnosis:: Same. Indications for Procedure:: Patient is a very pleasant 53-year-old male who comes our clinic today for right L3-4, L4-5 transforaminal epidural steroid injection. Patient describes low lumbar back pain as well as right hip and leg radicular symptoms to the foot. He describes the pain as constant, dull, aching. Patient presents today antalgic gait requiring a cane for stability. He rates his pain 8/10. Procedure Details:: Details of the procedure explained to the patient. The patient was taken to procedure room placed in the prone position. The area over the lumbar spine was cleansed using chlorhexidine as a cleansing solution. Using fluoroscopy guidance markers were placed over the right border of the L3-4 and L4-5 vertebral body. At each marker the skin and subcutaneous tissue was anesthetized using 1% lidocaine and a 25-gauge needle. At this time using fluoroscopy guidance 3 and half inch 22-gauge spinal needle was used to access the upper one third of the L3-4 and L4-5 foramen. Using fluoroscopy guidance in the lateral position needle position was confirmed using 0.5 mL of contrast dye. Good spread was noted in the epidural space at each level. After negative aspiration 2 mL of 1% lidocaine and 40 mg of Depo-Medrol was injected at each level. Patient tolerated procedure without difficulty. There are no complications. Plan and Disposition:: Patient walked out of the procedure room without using the cane. Pain essentially was 0/10. He was discharged without incident.
[2023-12-28 09:16] VITALS: BP 118/77; PULSE 114; RESP 18; O2SAT 93
== END 2023-12-28 09:18 | disposition home or self-care (01) ==
PROVIDERS: PCP Family Medicine; Visit Provider Nurse Anesthetist, Certified Registered
DX: M54.16 Radiculopathy, lumbar region (principal)
CPT/HCPCS: 64483; 64484; J1010

== ENCOUNTER 2024-01-20 09:52 | Outpatient (POV) | payer BC, SELFPAY ==
[2024-01-20 10:01] VITALS: BP 129/99; PULSE 124; RESP 16; O2SAT 95; BMI 30.1
--- NOTE | 2024-01-20 10:30 | A.OFFVIS_ITS ---
[facility] Disclaimer: The information contained in this section may have been updated after the patient was seen, as this information can be updated by other users. Medical History (Updated 01/20/24 @ 10:32 by Helene Blood APRN) Bronchitis Sinusitis Pleurisy Lumbar disc disease with radiculopathy Tympanosclerosis Deviated septum Sinus congestion History of stomach ulcers History of asthma Chronic sinusitis Surgical History Hx of bilateral inguinal hernia repair History of placement of ear tubes Social History Smoking Status: Never smoker alcohol intake: never substance use type: denies use current occupational status: employed Travel in the last 8 weeks: None household members: family housing: house PM Subjective & Objective Subjective Subjective:: Patient is a pleasant 53-year-old male who presents today for follow-up of right transforaminal epidural steroid injection L3-L4 and L4-L5 on 12/28/2023. Today he rates his pain a 4 out of 10. Patient states that he has had at least 60% improvement and feels like it is still helping. He does state that most of his pain today is more so prominent in and around his knee and radiating down his right leg. He states that this is a tender to touch sensation however denies any rash or swelling. Patient states he does believe this is been going on the entirety of his pain however just does not notice it due to the worsening pain in his overall back and upper thigh area. Patient was prescribed compounded cream and states that this did help significantly even on the tender sensations however he feels like it ends up causing more issues during the day when he applies it makes it difficult to walk once at stride so he has not used it during that time. Patient is currently managed with oxycodone, gabapentin and Flexeril from outside providers. His Owen has been reviewed and is appropriate. Review of Systems: General: No recent weight changes, no fever, no sleep disturbances Respiratory: No cough, no shortness of air, no recurring pulmonary infections Cardiovascular/peripheral vascular: No chest pain, no palpitations, no edema, no shortness of breath Gastrointestinal: No new onset incontinence, normal bowel movements reported Genitourinary: No new onset incontinence Musculoskeletal: Lower right leg tenderness Psychiatric: [Normal mood/affect] Neurological: [Denies weakness in extremities], [denies balance issues] Pain at rest (0-10 scale): 4 Objective Objective:: Physical Exam: General: Alert and oriented x3, no acute distress, pleasant and cooperative Lungs: Respirations even and unlabored, symmetrical chest expansion Eyes: PERRL Musculoskeletal: Flexion and extension of lumbar [spine] somewhat guarded secondary to pain, [antalgic gait noted] Neurological: Speech clear, no gross sensory deficit Has patient had previous pain injection?: Yes Percent improvement in pain since last injection: 60% Conservative treatment options previously tried: Home exercise plan Length of tr eatment: Longer than 6 weeks Meds Home Medications and Allergies Home Medications Medication Instructions Recorded Confirmed Type albuterol sulfate 90 mcg/actuation 1 puff inhalation Q4HP PRN 11/22/23 01/20/24 History aerosol inhaler Shortness Of Breath cyclobenzaprine 10 mg tablet 10 mg PO BIDP PRN Muscle Spasm 11/22/23 01/20/24 History gabapentin 300 mg capsule 300 mg PO BID #60 caps 11/23/23 01/20/24 Rx oxycodone 5 mg tablet 5 mg PO Q6HP PRN Severe Pain 11/23/23 01/20/24 Rx (7-10) #10 tabs New Prescriptions to Start Prescriptions: Allergies Allergy/AdvReac Type Severity Reaction Status Date / Time erythromycin base Allergy Rash Verified 12/24/23 09:49 Assessment and Plan *Assessment and plan (1) Lumbar spinal stenosis: Status: Acute Qualifiers: Neurogenic claudication status: with neurogenic claudication Qualified Code(s): M48.062 - Spinal stenosis, lumbar region with neurogenic claudication Category: Medical Code(s): M48.061 - Spinal stenosis, lumbar region without neurogenic claudication (2) Lumbar radiculopathy: Status: Acute Category: Medical Code(s): M54.16 - Radiculopathy, lumbar region (3) Degenerative disc disease, lumbar: Status: Acute Category: Medical Code(s): M51.36 - Other intervertebral disc degeneration, lumbar region (4) Right leg pain: Status: Acute Category: Medical Code(s): M79.604 - Pain in right leg (5) Myofascial pain: Status: Acute Category: Medical Code(s): M79.18 - Myalgia, other site Plan Patient has had significant improvement following his transforaminal epidural and does not require any additional injection therapy. I have discussed with the patient that I do think it may be beneficial to order updated labs as he states that he has not had this done for some time. I did also recreation counselor the patient in future where he does have tenderness to touch that we could see about doing trigger point injections. We will follow-up with the patient in 1 month for reevaluation of symptoms and plan of care. Patient has been instructed to contact the clinic with any concerns before the next appointment. Dr. Pena has reviewed this note and agrees with this plan of care. This note was dictated using voice recognition software and make contain errors or omissions.
== END 2024-01-20 23:59 | disposition home or self-care (01) ==
LOC: SC.PAIN 09:53
PROVIDERS: PCP Family Medicine; Visit Provider Nurse Practitioner Family
DX: M48.062 Spinal stenosis, lumbar region with neurogenic claudication (principal); M51.16 Intervertebral disc disorders with radiculopathy, lumbar region; M79.604 Pain in right leg; M79.18 Myalgia, other site
CPT/HCPCS: 99212; G0463

== ENCOUNTER 2024-02-17 16:00 | Outpatient (RCR) | payer BC, SELFPAY | END 2024-02-17 16:05 | disposition home or self-care (01) | LOC: PT 16:00 | PROVIDERS: Visit Provider Neurological Surgery | DX: M54.50 Low back pain, unspecified (principal) | CPT/HCPCS: 20561; 97010; 97012; 97014; 97035; 97110; 97140; 97163; 97164; G0283 ==